=== PATIENT | female | born 1945 | race Caucasian/White ===

== ENCOUNTER 2022-06-02 11:17 | Outpatient (CLI) | payer BC, SELFPAY | END 2022-06-02 11:18 | disposition home or self-care (01) | LOC: NFLDREF 11:20 | PROVIDERS: PCP Internal Medicine; Visit Provider Obstetrics & Gynecology | DX: R35.0 Frequency of micturition (principal) | CPT/HCPCS: 87086 ==

== ENCOUNTER 2022-11-16 07:30 | Outpatient (CLI) | payer BC, SELFPAY ==
[2022-11-16 10:00] LABS: Chloride* 106 mmol/L (96-114); Potassium* 4.3 mmol/L (3.6-5.1); Sodium* 140 mmol/L (135-149)
[2022-11-16 10:03] LABS: Creatinine* 0.9 mg/dL (0.5-1.5); Estimated Glomerular Filt Rate 66 ml/min
[2022-11-16 10:04] LABS: Blood Urea Nitrogen* 20 mg/dL (7-30); Calcium* 9.3 mg/dL (8.4-10.6); Carbon Dioxide* 32 mmol/L (20-32); Glucose* 101 mg/dL (60-115)
== END 2022-11-16 07:31 | disposition home or self-care (01) ==
PROVIDERS: PCP Internal Medicine; Visit Provider Internal Medicine
DX: Z00.00 Encounter for general adult medical examination without abnormal findings (principal); E03.9 Hypothyroidism, unspecified; I10 Essential (primary) hypertension
CPT/HCPCS: 80048; 84443

== ENCOUNTER 2023-02-01 15:05 | Outpatient (CLI) | payer BC, SELFPAY ==
--- NOTE | 2023-02-01 15:20 | CRLHL7_ITS ---
For Patients: As a result of the Century Cures Act, medical imaging exams and procedure reports are released immediately into your electronic medical record. You may view this report before your referring provider. If you have questions, please contact your health care provider. BILATERAL SCREENING MAMMOGRAM WITH COMPUTER-AIDED DETECTION AND TOMOSYNTHESIS TECHNIQUE: CC and MLO views were obtained. These mammographic images have been obtained using full-field digital technique. These mammographic images were interpreted with the benefit of computer-aided detection. Breast Tomosynthesis was used in this interpretation. COMPARISON FILM: 06/24/21, 06/16/20, 06/11/19 FINDINGS: There are scattered areas of fibroglandular density. IMPRESSION: There is no radiographic evidence for malignancy. ASSESSMENT: BI-RADS Category 1: Negative RECOMMENDATION: Routine screening mammogram in 1 year. A lay language report of this examination will be provided to the patient. Yann Mayfield M.D. Diagnostic/Nuclear Medicine Radiologist [email or web address] Transcribed: 8:53 a.m. PT/Dictated by: Yann Mayfield MD @ 02/08/2023 8:54:00 AM (Electronically Signed)
== END 2023-02-01 15:06 | disposition home or self-care (01) ==
LOC: MAMMO 15:06
PROVIDERS: PCP Internal Medicine; Visit Provider Internal Medicine
DX: Z12.31 Encounter for screening mammogram for malignant neoplasm of breast (principal)
CPT/HCPCS: 77063; 77067

== ENCOUNTER 2023-12-05 09:10 | Outpatient (CLI) | payer BC, SELFPAY | END 2023-12-05 09:11 | disposition home or self-care (01) | LOC: NFLDREF 15:27 | PROVIDERS: PCP Internal Medicine; Referring Provider Internal Medicine; Visit Provider Internal Medicine | DX: E03.9 Hypothyroidism, unspecified (principal); I10 Essential (primary) hypertension | CPT/HCPCS: 80048; 84443 ==

== ENCOUNTER 2024-04-18 09:08 | Outpatient (CLI) | payer BC, SELFPAY ==
--- NOTE | 2024-04-18 09:15 | CRLHL7_ITS ---
For Patients: As a result of the Century Cures Act, medical imaging exams and procedure reports are released immediately into your electronic medical record. You may view this report before your referring provider. If you have questions, please contact your health care provider. BILATERAL SCREENING MAMMOGRAM WITH COMPUTER-AIDED DETECTION AND TOMOSYNTHESIS TECHNIQUE: CC and MLO views were obtained. These mammographic images have been obtained using full-field digital technique. These mammographic images were interpreted with the benefit of computer-aided detection. Breast Tomosynthesis was used in this interpretation. COMPARISON FILM: 02/01/23, 06/24/21, 06/16/20. FINDINGS: There are scattered areas of fibroglandular density. IMPRESSION: There is no radiographic evidence for malignancy. ASSESSMENT: BI-RADS Category 1: Negative RECOMMENDATION: Routine screening mammogram in 1 year. A lay language report of this examination will be provided to the patient. Jake Hernandez M.D. Diagnostic Radiologist [email or web address] SP/Dictated by: Jake Hernandez MD @ 04/18/2024 12:07:00 PM (Electronically Signed)
== END 2024-04-18 09:09 | disposition home or self-care (01) ==
LOC: MAMMO 09:09
PROVIDERS: PCP Internal Medicine; Visit Provider Internal Medicine
DX: Z12.31 Encounter for screening mammogram for malignant neoplasm of breast (principal)
CPT/HCPCS: 77063; 77067

== ENCOUNTER 2024-12-10 08:09 | Outpatient (CLI) | payer BC, SELFPAY | END 2024-12-10 08:10 | disposition home or self-care (01) | PROVIDERS: PCP Internal Medicine; Visit Provider Internal Medicine | DX: E03.9 Hypothyroidism, unspecified (principal); I10 Essential (primary) hypertension; M85.80 Other specified disorders of bone density and structure, unspecified site | CPT/HCPCS: 80048; 82306; 84443 ==

== ENCOUNTER 2025-03-21 07:20 | Outpatient (CLI) | payer BC, SELFPAY | END 2025-03-21 07:21 | disposition home or self-care (01) | LOC: AMB 03-22 09:12 | PROVIDERS: PCP Internal Medicine; Visit Provider Family Medicine | DX: R53.1 Weakness (principal) | CPT/HCPCS: A0425; A0427 ==

== ENCOUNTER 2025-03-21 07:51 | Inpatient (IN) | payer BC, MEDICARE, SELFPAY ==
[2025-03-21] VITALS (22 sets, daily range): BP systolic 158–213; BP diastolic 74–114; PULSE 60–81; RESP 11–22; TEMP 36.4–36.7; O2SAT 92–100; BMI 25.1
--- NOTE | 2025-03-21 07:51 | CRLHL7_ITS ---
For Patients: As a result of the Century Cures Act, medical imaging exams and procedure reports are released immediately into your electronic medical record. You may view this report before your referring provider. If you have questions, please contact your health care provider. INDICATION: Right-sided weakness, unable to control arm and leg. TECHNIQUE: CT head without contrast. COMPARISON: None. FINDINGS: CSF spaces: Within normal limits for age. Brain parenchyma: The pandey-white differentiation is normal. No sign of mass, hemorrhage, or midline shift. Small low-density within the deep white matter. Skull base and calvarium: The visualized paranasal sinuses and mastoid air cells demonstrate no acute or significant findings. The visualized orbits are grossly unremarkable. No skull fractures. IMPRESSION: 1. No intracranial bleed or mass effect. 2. Mild nonspecific white matter disease, likely microangiopathy. Results called to Dr. Canales at 0814 on 03/21/2025 Please note that all CT scans at this facility use dose modulation, iterative reconstruction, and/or weight-based dosing when appropriate to reduce radiation dose to as low as reasonably achievable. Dictated by Harjinder Lebron MD @ 03/21/2025 8:16:07 AM (Electronically Signed)
--- NOTE | 2025-03-21 08:04 | ED.GENADULT ---
HPI - General Adult General Time Seen by Provider: 08:04 Date Seen: 03/21/25 Chief complaint: Weakness Stated complaint: Weakness Time Seen by Provider: 03/21/25 08:03 Source: patient, EMS and RN notes reviewed Mode of arrival: EMS Limitations: no limitations History of Present Illness HPI narrative: This 79-year-old female is brought in by EMS from home with complaint of right arm and leg weakness/clumsiness. She had a cramp in her right leg about 3:00 a.m., this is not abnormal for her. She attempted to stand up and felt like her right leg was weak or clumsy. She noted her arm felt the same. She laid back down and did feel a bit better, was able to get herself to the bathroom eventually. Symptoms have continued to be present, were worsening again and prompted her to call the ambulance. 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 She notes when she is up she feels unsteady in her gait. She notes no visual changes, no headache, no head trauma. She has not noted any chest pain or any sense of irregular heartbeat or palpitations. She does note that she will occasionally feel like her heart will beat irregular but she has not noticed anything with in the context of her current symptoms. She was brought in by EMS, the overnight doctor gave an okay for verbal ordering of head CT based on patient's symptoms. Patient went directly to head CT, I am the 1st physician to see her off upon arriving back from head CT. She has a contrast allergy with hives. She is known to have hypertension and history of left bundle branch block on her EKG. Patient went to bed around 10:00 p.m. or 10:30 p.m. last night, last known well. Related Data Home Medications ?Medication ?Instructions ?Recorded ?Confirmed alprazolam 0.5 mg tablet 0.25 - 0.5 mg PO DAILY PRN anxiety 03/21/25 03/21/25 amitriptyline 25 mg tablet 25 mg PO HS 03/21/25 03/21/25 ibuprofen-diphenhydramine citrate 1 cap PO HS PRN 03/21/25 03/21/25 200 mg-38 mg tablet (Advil PM) levothyroxine 125 mcg tablet 125 mcg PO DAILY 03/21/25 03/21/25 lisinopril 10 mg tablet 10 mg PO DAILY 03/21/25 03/21/25 oxybutynin chloride 15 mg 15 mg PO DAILY 03/21/25 03/21/25 tablet,extended release 24 hr Allergies Allergy/AdvReac Type Severity Reaction Status Date / Time Iodinated Contrast Media Allergy Severe Difficulty Verified 03/21/25 10:40 Breathing Influenza Virus Vaccines Allergy Unknown Hives Verified 03/21/25 10:40 Review of Systems Status of ROS: Reports: 6 or more systems reviewed and unremarkable except as noted in History and below [facility] Medical History History of thyroid cancer (1994) ?Z85.850 - Personal history of malignant neoplasm of thyroid (ICD-10) Surgical History History of cataract surgery ?Z98.49 - Cataract extraction status, unspecified eye (ICD-10) History of basal cell cancer ?Z85.828 - Personal history of other malignant neoplasm of skin (ICD-10) History of tonsillectomy ?Z90.89 - Acquired absence of other organs (ICD-10) History of thyroidectomy (1994) ?E89.0 - Postprocedural hypothyroidism (ICD-10) History of ovarian cystectomy (1995) ?Z98.890 - Other specified postprocedural states (ICD-10) ?Z87.42 - Personal history of other diseases of the female genital tract (ICD-10) Family History Maternal Grandfather Kidney disease Unknown Deep vein thrombosis Social History Narrative: Cis-gender, heterosexual woman. 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 Lifetime non-smoker What is your current living situation?: I presently have a place to live Problems where you live: no known problems Problems where you live details: none In the past 12 months, utilities in danger of being shut off: no In past 12 months, lack of transportation kept you from medical appts, meetings, work, or getting things needed for daily living: no In the past 12 mos, have been you worried that your food would run out before you had money to buy more?: never true In the past 12 mos, the food you bought just didn't last and you didn't have money to buy more?: never true Highest level of school completed/degree received: Master's degree Smoking Status: Former smoker How often do you have a drink containing alcohol: 4 or more times a week How many standard drinks containing alcohol do you have on a typical day: 1 or 2 How often do you have six or more drinks on one occasion: Never AUDIT-C Alcohol total score: 4 Non-prescribed substance use: denies use How often does anyone, including family, friends and others, physically hurt you: never How often does anyone, including family, friends and others, insult or talk down to you: never How often does anyone, including family, friends and others, threaten you with harm: never How often does anyone, including family, friends and others, scream or curse at you: never Exam Const: Vital Signs, click to edit/add: Vital Signs - 24 hr 03/21/25 07:57 03/21/25 08:09 03/21/25 08:22 Temperature 97.5 F L Pulse Rate 60 Pulse Rate [Pulse Oximeter] 68 Respiratory Rate 16 13 Blood Pressure 199/94 H Blood Pressure [Le ft Upper Arm] 194/93 H Pulse Oximetry 96 97 [facility] 03/21/25 08:31 03/21/25 08:47 03/21/25 08:48 Temperature Pulse Rate 81 68 65 Pulse Rate [Pulse Oximeter] Respiratory Rate 16 16 15 Blood Pressure 213/114 H 205/98 H Blood Pressure [Le ft Upper Arm] Pulse Oximetry 100 98 98 [facility] 03/21/25 09:00 03/21/25 09:02 03/21/25 09:23 Temperature Pulse Rate 68 69 63 Pulse Rate [Pulse Oximeter] Respiratory Rate 19 18 16 Blood Pressure 192/104 H 198/91 H Blood Pressure [Le ft Upper Arm] Pulse Oximetry 96 97 95 Oxygen Delivery Pr thod 03/21/25 09:38 03/21/25 09:51 03/21/25 09:52 Temperature Pulse Rate 67 70 67 Pulse Rate [Pulse Oximeter] Respiratory Rate 22 20 16 Blood Pressure 211/92 H Blood Pressure [Le ft Upper Arm] Pulse Oximetry 96 96 95 Oxygen Delivery Me thod 03/21/25 10:02 03/21/25 11:08 03/21/25 11:32 Temperature Pulse Rate 65 62 67 Pulse Rate [Pulse Oximeter] Respiratory Rate 11 L 16 16 Blood Pressure 208/100 H 200/93 H 174/89 H Blood Pressure [Le ft Upper Arm] Pulse Oximetry 95 96 98 Oxygen Delivery Me thod 03/21/25 11:45 03/21/25 12:00 03/21/25 12:02 Temperature Pulse Rate 66 68 67 Pulse Rate [Pulse Oximeter] Respiratory Rate 12 13 14 Blood Pressure 184/92 H Blood Pressure [Le ft Upper Arm] Pulse Oximetry 95 95 92 Oxygen Delivery Me thod This 79-year-old female is alert, interactive, no apparent distress. Pupils equal round reactive to light, visual carter grossly normal on confrontation. Sclera clear, conjugate gaze. Symmetrical facial function, speech normal. Neck supple, no adenopathy, no palpable thyroid tissue (surgically absent), no jugular venous distention. CV regular rate and rhythm, soft systolic murmur, normal S1-S2. Abdomen soft, nontender, nondistended, no organomegaly, rebound or guarding. 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 Able to lift each leg out of the bed. What is noted on her right side is she is slower and has to be very deliberate on her finger to finger movements. She does have right arm drift. She has dysmetria with both her arm and leg with movement. I do not note any resting tremor. Seems to have normal light touch sensation at this point. Documenting provider has reviewed patient's vital signs: yes Course Course ED Course: Head CT imaging done, should have results shortly. Will talk to Stroke Neurology, they have reportedly been paged. She will be on cardiac monitoring, pulse oximetry. Will monitor her blood pressure. Do suspect that this patient has had a cerebrovascular event. Will need to premedicate before doing CT angiography of her head neck. Will order 200 mg IV hydrocortisone and 50 mg IV Benadryl, CT can be done 1 hour after that following our radiology protocol for premedication. She certainly does not fit time criteria to be in the window for thrombolytics. Reevaluation(s) Time of Reevaluation #1: 11:59 Reevaluation #1: Reviewed plan with patient. Answered some of her questions. She will be moved to the hospital when bed is ready. Consultations Consultation #1: Did speak with Dr. Canales whom is on-call for Stroke Neurology. We did review patient's hypertensive blood pressures. Goal will be to have her under 220/110. She would not be a candidate for TNK nor thrombectomy candidate. We did discuss the allergy to IV contrast with hives. We do need to premedicate with hydrocortisone and Benadryl. She states that the delay in CT angiography really is unlikely to alter care significantly given that patient is not a candidate for TNK or thrombectomy. We will let her know when CT angiography has been completed. Patient is suspect for small-vessel disease CVA. 10:30 a.m.: Did follow-up with Dr. Canales. Patient will be getting an MR brain noncontrast which she agrees with. Patient has not been taking any aspirin. Thus, she will get an 81 mg aspirin now per Dr. Canales. Will follow-up after MRI. 11:49 a.m.: Did speak with Dr. Canales again. Review the MRI finding an acute ischemic stroke. She would do dual antiplatelet agent with Plavix 75 mg for 21 days. She does not recommend Plavix loading, just give 75 mg now. She will see the patient in the morning. I will talk to the hospitalist. Time: 08:10 Consultation #2: Have spoken with our hospitalist Dr. Peraza, she accepts. Time: 11:53 Vital Signs Vital signs: Initial Vital Signs Temperature 97.5 F L 03/21/25 07:57 Temperature Source Temporal Artery Scan 03/21/25 07:57 Pulse Rate 68 03/21/25 07:57 Respiratory Rate 16 03/21/25 07:57 Blood Pressure 194/93 H 03/21/25 07:57 Blood Pressure Mean 126 H 03/21/25 07:57 Blood Pressure Position Supine 03/21/25 07:57 Pulse Oximetry 96 03/21/25 07:57 Oxygen Delivery Method Room Air 03/21/25 07:57 Vital Signs Temperature 97.5 F L 03/21/25 07:57 Pulse Rate 68 03/21/25 07:57 Respiratory Rate 16 03/21/25 07:57 Blood Pressure 194/93 H 03/21/25 07:57 Pulse Oximetry 96 03/21/25 07:57 Oxygen Delivery Method Room Air 03/21/25 07:57 Temperature 98.0 F 03/21/25 15:02 Pulse Rate 68 03/21/25 15:02 Respiratory Rate 18 03/21/25 15:02 Blood Pressure 169/76 H 03/21/25 15:02 Pulse Oximetry 93 03/21/25 15:02 Oxygen Delivery Method Room Air 03/21/25 15:02 Medications Administered Medications: Discontinued Medications Generic Name Dose Route Start Last Admin Trade Name Freq PRN Reason Stop Dose Admin Aspirin 81 mg 03/21/25 10:30 03/21/25 11:07 Aspirin 81 Mg Tab.Chew PO 03/21/25 10:31 81 mg ONCE ONE Administration Clopidogrel Bisulfate 75 mg 03/21/25 11:50 03/21/25 11:58 Clopidogrel 75 Mg Tablet PO 03/21/25 11:51 75 mg ONCE ONE Administration Diphenhydramine HCl 50 mg 03/21/25 08:15 03/21/25 08:21 Diphenhydramine 50 Mg/Ml Inj IVP 03/21/25 08:16 50 mg ONCE ONE Administration Hydrocortisone Sodium Succinate 200 mg 03/21/25 08:14 03/21/25 08:20 Hydrocortisone Sod Succinate 50 Mg/Ml Inj IVP 03/21/25 08:15 200 mg ONCE ONE Administration Lorazepam 1 mg 03/21/25 10:12 03/21/25 10:21 Lorazepam 1 Mg Tablet PO 03/21/25 10:13 1 mg ONCE ONE Administration Medical Decision Making Lab Data Lab results reviewed: Yes I reviewed the patient's lab results Labs: Lab Results 03/21/25 Range/Units 08:15 WBC 7.15 (4.50-11.00) K/uL RBC 5.04 (4.00-5.20) m/uL Hgb 15.1 (12.0-16.0) gm/dL Hct 45.8 (33.0-51.0) % MCV 91 (80-100) fL MCH 30 (26-34) pg MCHC 33 (32-36) gm/dL RDW Coeff of Naina 13.6 (11.5-15.5) % Plt Count 266 (140-440) K/uL Neut % (Auto) 71.5 (42.0-72.0) % Lymph % (Auto) 22.5 (20-44) % [place] % (Auto) 3.8 (0.0-11.0) % Eos % (Auto) 1.3 (0.0-7.0) % Baso % (Auto) 0.6 (0.0-3.0) % Neut # (Auto) 5.12 (1.7-7.0) K/uL Lymph # (Auto) 1.61 (0.90-2.90) K/uL [place] # (Auto) 0.30 (0.00-0.90) K/UL Eos # (Auto) 0.09 (0.00-0.50) K/uL Baso # (Auto) 0.04 (0.00-0.30) K/uL Abs Immat Gran (auto) 0.02 (0.00-0.30) K/uL Imm/Tot Granulo (auto) 0.3 % INR 0.94 (0.91-1.10) APTT 26 (23-33) Seconds Sodium 141 (135-149) mmol/L Potassium 4.2 (3.6-5.1) mmol/L Chloride 108 (96-114) mmol/L Carbon Dioxide 25 (20-32) mmol/L Anion Gap 8 (7-15) mEq/L BUN 22 (7-30) mg/dL Creatinine 1.1 (0.5-1.5) mg/dL Estimated Creat Clear 43.34 Estimated GFR 51 ml/min Glucose 115 (60-115) mg/dL Calcium 9.7 (8.4-10.6) mg/dL Magnesium 2.3 (1.5-2.6) mg/dL Total Bilirubin 0.8 (0.1-1.5) mg/dL AST 33 (12-35) U/L ALT 20 (4-35) U/L Alkaline Phosphatase 58 (40-150) U/L Total Protein 7.8 (6.0-8.3) g/dL Albumin 4.7 (3.3-5.0) g/dL Imaging Data CT scan - head: Attestation: I have reviewed the pertinent imaging results. Radiologist's impression: Patient: DELANEY MORALES Facility:?[facility] Patient ID:?[id number] Site Patient ID:?[id number]. Site :?1945 Study:?CT-Head STROKE CODE-03/21/2025 8:07:11 AM Ordering Physician:Gil Solis Final Report: INDICATION: Right-sided weakness, unable to control arm and leg. TECHNIQUE: CT head without contrast. COMPARISON: None. FINDINGS: CSF spaces: Within normal limits for age. Brain parenchyma: The pandey-white differentiation is normal. No sign of mass, hemorrhage, or midline shift. Small low-density within the deep white matter. Skull base and calvarium: The visualized paranasal sinuses and mastoid air cells demonstrate no acute or significant findings. The visualized orbits are grossly unremarkable. No skull fractures. IMPRESSION: 1. No intracranial bleed or mass effect. 2. Mild nonspecific white matter disease, likely microangiopathy. Results called to Dr. Canales at 0814 on 03/21/2025 Please note that all CT scans at this facility use dose modulation, iterative reconstruction, and/or weight-based dosing when appropriate to reduce radiation dose to as low as reasonably achievable. Dictated by Harjinder Lebron MD @ 03/21/2025 8:16:07 AM (Electronic Signature) CT- Other: Attestation: I have reviewed the pertinent imaging results. Radiologist's impression: Patient: DELANEY MORALES Facility:?[facility] Patient ID:?[id number] Site Patient ID:?[id number]. Site :?1945 Study:?CT-Head Angio STROKE CODE WITH 95 CC ISOVUE 370-03/21/2025 9:44:23 AM Ordering Physician:?Olga Solis Preliminary Report: . CTA head: No large vessel occlusion. . CTA neck: No high-grade carotid artery stenosis, occlusion or dissection. Bilateral vertebral arteries are patent. . Discussed with Dr. Canales by telephone at 10:03 a.m. on 03/21/2025. Read by:?Bruno Agarwal MD @03/21/2025 10:05:09 AM MRI - head: Attestation: I have reviewed the pertinent imaging results. Radiologist's impression: Patient: DELANEY MORALES Facility:?[facility] Patient ID:?[id number] Site Patient ID:?[id number]. Site :?1945 Study:?MRI-Head W/O-03/21/2025 11:20:45 AM Ordering Physician:Gil Solis Final Report: INDICATION: Right-sided weakness. Incoordination. TECHNIQUE: Brain MRI without contrast. COMPARISON: Head CT from 03/21/2025. FINDINGS: Focus of diffusion restriction/minimal FLAIR hyperintensity within the posterior putamen/periventricular ferrell radiata which measures 10 x 17 millimeters in axial plane. No evidence of acute or chronic intracranial blood products. Patchy FLAIR hyperintensities within the supratentorial white matter and brainstem, typical for chronic microvascular ischemic change. No mass effect or herniation. No hydrocephalus or extra-axial collections. The pituitary gland, parasellar structures and optic chiasm are normal. Posterior fossa is normal. All the major intracranial vascular structures demonstrate normal flow-related signal. The orbital contents are normal. No calvarial or skull base marrow replacing process. No obstructive sinus disease. No extracranial soft tissue findings. IMPRESSION: 1. 17 millimeter acute infarction within the left posterior putamen/periventricular coronary radiata, likely lacunar in etiology. 2. Mild chronic microvascular ischemic changes. Dictated by Nolan Maldonado MD @ 03/21/2025 11:42:16 AM (Electronic Signature) ECG Data Attestation: I personally reviewed and interpreted this ECG as follows: (Normal sinus rhythm, 61 beats per minute, left bundle branch block.) Prior ECG tracings: available for review Discharge Plan Discharge Clinical Impression: Acute lacunar infarction Patient Disposition: Admitted As Observation
--- NOTE | 2025-03-21 08:09 | CRLHL7_ITS ---
For Patients: As a result of the Century Cures Act, medical imaging exams and procedure reports are released immediately into your electronic medical record. You may view this report before your referring provider. If you have questions, please contact your health care provider. CLINICAL HISTORY: Acute neurological deficit. TECHNIQUE: Standard helical CT image acquisition through the head following the administration of intravenous contrast was performed. 3D and MIP reconstructions were performed at a separate workstation and permanently archived. COMPARISON: None available. FINDINGS: No intracranial proximal large vessel occlusion or flow-limiting luminal stenosis. No evidence of cerebral aneurysm. No findings to suggest an arterial-venous shunting lesion. The major dural venous sinuses and deep venous system are patent. IMPRESSION: No intracranial proximal large vessel occlusion, flow-limiting luminal stenosis, or cerebral aneurysm. Please note that all CT scans at this facility use dose modulation, iterative reconstruction, and/or weight-based dosing when appropriate to reduce radiation dose to as low as reasonably achievable. Dictated by Herb Albrecht MD @ 03/21/2025 7:07:01 PM (Electronically Signed)
--- NOTE | 2025-03-21 08:09 | CRLHL7_ITS ---
For Patients: As a result of the Century Cures Act, medical imaging exams and procedure reports are released immediately into your electronic medical record. You may view this report before your referring provider. If you have questions, please contact your health care provider. CLINICAL HISTORY: Acute neurological deficit. TECHNIQUE: Standard helical CT image acquisition through the neck was performed after intravenous contrast bolus enhancement. 3D and MIP reconstructions were performed at a separate workstation and permanently archived. COMPARISON: None available. FINDINGS: The origins of the great vessels from the aortic arch are patent. The common carotid arteries are patent. No significant luminal stenoses of the proximal ICAs by NASCET criteria. The more distal cervical segments of the ICAs are patent. The origins and cervical segments of the vertebral arteries are patent. IMPRESSION: Patent cervical arterial vasculature without hemodynamically significant luminal stenosis. Please note that all CT scans at this facility use dose modulation, iterative reconstruction, and/or weight-based dosing when appropriate to reduce radiation dose to as low as reasonably achievable. Dictated by Herb Albrecht MD @ 03/21/2025 7:04:20 PM (Electronically Signed)
[2025-03-21] MEDS: HYDROCORTISONE SOD SUCCINATE 50 MG/ML inj 200 MG IVP (08:20)
[2025-03-21] MEDS: diphenhydrAMINE 50 MG/ML inj IVP (08:21)
[2025-03-21 08:26] LABS: Basophils Absolute Auto 0.04 K/uL (0.00-0.30); Basophils Percent Auto 0.6 % (0.0-3.0); Eosinophils Absolute Auto 0.09 K/uL (0.00-0.50); Eosinophils Percent Auto 1.3 % (0.0-7.0); Hematocrit 45.8 % (33.0-51.0); Hemoglobin* 15.1 gm/dL (12.0-16.0); Immature Granulocytes Abs Auto 0.02 K/uL (0.00-0.30); Immature Granulocytes Pct Auto 0.3 %; Lymphocytes Absolute Auto 1.61 K/uL (0.90-2.90); Lymphocytes Percent Auto 22.5 % (20-44); Mean Corpuscular HGB Conc 33 gm/dL (32-36); Mean Corpuscular Hemoglobin 30 pg (26-34); Mean Corpuscular Volume 91 fL (80-100); Monocytes Percent Auto 3.8 % (0.0-11.0); Neutrophils Absolute Auto 5.12 K/uL (1.7-7.0); Neutrophils Percent Auto 71.5 % (42.0-72.0); Platelet Count* 266 K/uL (140-440); RDW Coefficient of Variation % 13.6 % (11.5-15.5); Red Blood Count 5.04 m/uL (4.00-5.20); White Blood Count* 7.15 K/uL (4.50-11.00)
[2025-03-21 08:29] LABS: Slide Review Reflex No
[2025-03-21 08:41] LABS: Chloride* 108 mmol/L (96-114)
[2025-03-21 08:42] LABS: Albumin* 4.7 g/dL (3.3-5.0); Potassium* 4.2 mmol/L (3.6-5.1); Sodium* 141 mmol/L (135-149)
[2025-03-21 08:45] LABS: Alanine Aminotransferase* 20 U/L (4-35); Alkaline Phosphatase* 58 U/L (40-150); Anion Gap 8 mEq/L (7-15); Aspartate Amino Transferase* 33 U/L (12-35); Bilirubin Total* 0.8 mg/dL (0.1-1.5); Blood Urea Nitrogen* 22 mg/dL (7-30); Calcium* 9.7 mg/dL (8.4-10.6); Carbon Dioxide* 25 mmol/L (20-32); Creatinine* 1.1 mg/dL (0.5-1.5); Est. Creatinine Clearance* 43.34; Estimated Glomerular Filt Rate 51 ml/min; Glucose* 115 mg/dL (60-115); Magnesium* 2.3 mg/dL (1.5-2.6); Total Protein* 7.8 g/dL (6.0-8.3)
[2025-03-21 08:46] LABS: INR 0.94 (0.91-1.10); Partial Thromboplastin Time* 26 Seconds (23-33); Prothrombin Time 13.3 Seconds
--- NOTE | 2025-03-21 10:12 | CRLHL7_ITS ---
For Patients: As a result of the Century Cures Act, medical imaging exams and procedure reports are released immediately into your electronic medical record. You may view this report before your referring provider. If you have questions, please contact your health care provider. INDICATION: Right-sided weakness. Incoordination. TECHNIQUE: Brain MRI without contrast. COMPARISON: Head CT from 03/21/2025. FINDINGS: Focus of diffusion restriction/minimal FLAIR hyperintensity within the posterior putamen/periventricular ferrell radiata which measures 10 x 17 millimeters in axial plane. No evidence of acute or chronic intracranial blood products. Patchy FLAIR hyperintensities within the supratentorial white matter and brainstem, typical for chronic microvascular ischemic change. No mass effect or herniation. No hydrocephalus or extra-axial collections. The pituitary gland, parasellar structures and optic chiasm are normal. Posterior fossa is normal. All the major intracranial vascular structures demonstrate normal flow-related signal. The orbital contents are normal. No calvarial or skull base marrow replacing process. No obstructive sinus disease. No extracranial soft tissue findings. IMPRESSION: 1. 17 millimeter acute infarction within the left posterior putamen/periventricular coronary radiata, likely lacunar in etiology. 2. Mild chronic microvascular ischemic changes. Dictated by Nolan Maldonado MD @ 03/21/2025 11:42:16 AM (Electronically Signed)
[2025-03-21] MEDS: LORazepam 1 MG TABLET PO (10:21)
[2025-03-21] MEDS: ASPIRIN 81 MG TAB.CHEW PO (11:07)
[2025-03-21] MEDS: CLOPIDOGREL 75 MG TABLET PO (11:58)
--- NOTE | 2025-03-21 13:57 | PM.IMHP1 ---
Assessment and Plan Assessment and plan (1) Acute lacunar infarction: Problem comment: -Brain MRI: 17 millimeter acute infarction within the left posterior putamen/periventricular coronary radiata, likely lacunar in etiology. -Pt is outside the window for thrombolytics and is not a candidate for [facility] thrombectomy as she doesnt have an LVO. -Frequent neuro exams -Permissive HTN, treat if only SBP > 220, and or DBP > 110. -Control Bl. sugar, keep < 180 -If neurological status detoriorates, order a stat CTH w/out IV cont. -Neurologist rec DAPT Tx for 21 days. -PT/OT/ST -NPO until ST eval or pt passes bedside swallow test. -No chem DVT PPx until neuro recommends it. SCDs for now. -ECHO ordered Status: Acute (2) Interstitial cystitis: Problem comment: gynecology started amitriptyline 06/07 Status: Acute (3) Urge incontinence: Problem comment: on Oxybutynin, Dr. Ibrahim recommended urology consultation (to discuss bladder botox amongst other things), 05/07 Status: Acute (4) Hypothyroidism: Problem comment: on levothyroxine Status: Chronic (5) Anxiety: Problem comment: on alprazolam as needed Status: Chronic (6) Essential hypertension: Problem comment: Hold meds Status: Acute (7) Left bundle branch block: Problem comment: Noted in outside records to 2005 Status: Acute (8) Glaucoma: Status: Chronic Total Time Spent Total Time Spent: Time spent: Today I spent 75 minutes seeing the patient, discussing the patient with ER staff, reviewing Expanse and EPIC notes/diagnostics, discussing the care plan with our care time that includes social work, PT/OT, pharmacy, RT, prison and documenting my impressions and plan in the medical record. Hospitalist- H&P: HPI History of Present Illness Date Seen: 03/21/25 Chief complaint: Weakness Narrative: Angela Valencia is a 79 year old female w/ PMHx of HTN, hypothyroidism, glaucoma, and interstitial cystitis presented to ED w/ Rt sided weakness. Pt LSN was ~ 10 PM yesterday. At the ED, CTH, CTA neck and brain MRI were done. Her MRI confirmed the presence of an acute Lt Lacunar infarct in the Putamen. Contacted Tele stroke team, who assessed her and stated that she is outside the window for thrombolytics and is not a candidate for [facility] thrombectomy as she doesnt have an LVO. Neurologist rec a DAPT Tx for 21 days, but didnt load her w/ ASA or plavix, just started w/ ASA 81 mg dose and Plavix 75 mg. Pt denies any Hx of strokes, TIAs or heart diseases except for HTN and Hx of ectopic beats. Not on any blood thinners. Review of Systems Status of ROS: Reports: 6 or more systems reviewed and unremarkable except as noted in History and below Medical Decision Making Medical Decision Making Has patient completed a Health Care Directive: No PFSH PFSH Medical History History of thyroid cancer (1994) ?Z85.850 - Personal history of malignant neoplasm of thyroid (ICD-10) Surgical History History of cataract surgery ?Z98.49 - Cataract extraction status, unspecified eye (ICD-10) History of basal cell cancer ?Z85.828 - Personal history of other malignant neoplasm of skin (ICD-10) History of tonsillectomy ?Z90.89 - Acquired absence of other organs (ICD-10) History of thyroidectomy (1994) ?E89.0 - Postprocedural hypothyroidism (ICD-10) History of ovarian cystectomy (1995) ?Z98.890 - Other specified postprocedural states (ICD-10) ?Z87.42 - Personal history of other diseases of the female genital tract (ICD-10) Family History Maternal Grandfather Kidney disease Unknown Deep vein thrombosis Social History Narrative: Cis-gender, heterosexual woman. 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 Lifetime non-smoker What is your current living situation?: I presently have a place to live Problems where you live: no known problems Problems where you live details: none In the past 12 months, utilities in danger of being shut off: no In past 12 months, lack of transportation kept you from medical appts, meetings, work, or getting things needed for daily living: no In the past 12 mos, have been you worried that your food would run out before you had money to buy more?: never true In the past 12 mos, the food you bought just didn't last and you didn't have money to buy more?: never true Highest level of school completed/degree received: Master's degree Smoking Status: Former smoker How often do you have a drink containing alcohol: 4 or more times a week How many standard drinks containing alcohol do you have on a typical day: 1 or 2 How often do you have six or more drinks on one occasion: Never AUDIT-C Alcohol total score: 4 Non-prescribed substance use: denies use How often does anyone, including family, friends and others, physically hurt you: never How often does anyone, including family, friends and others, insult or talk down to you: never How often does anyone, including family, friends and others, threaten you with harm: never How often does anyone, including family, friends and others, scream or curse at you: never Meds Home Medications and Allergies Home Medications ?Medication ?Instructions ?Recorded ?Confirmed ?Type alprazolam 0.5 mg tablet 0.25 - 0.5 mg PO DAILY PRN anxiety 03/21/25 03/21/25 History amitriptyline 25 mg tablet 25 mg PO HS 03/21/25 03/21/25 History ibuprofen-diphenhydramine citrate 1 cap PO HS PRN 03/21/25 03/21/25 History 200 mg-38 mg tablet (Advil PM) levothyroxine 125 mcg tablet 125 mcg PO DAILY 03/21/25 03/21/25 History lisinopril 10 mg tablet 10 mg PO DAILY 03/21/25 03/21/25 History oxybutynin chloride 15 mg 15 mg PO DAILY 03/21/25 03/21/25 History tablet,extended release 24 hr Allergies Allergy/AdvReac Type Severity Reaction Status Date / Time Iodinated Contrast Media Allergy Severe Difficulty Verified 03/21/25 10:40 Breathing Influenza Virus Vaccines Allergy Unknown Hives Verified 03/21/25 10:40 Exam Narrative: Exam Narrative: Physical exam GENERAL: Comfortable, no acute distress. HEAD AND NECK: Atraumatic, normocephalic CARDIOVASCULAR: RRR. Normal S1, S2. No murmurs. RESPIRATORY: Clear to auscultation B/L. Good air entry B/L. No wheezes or rhonchi. NEUROLOGY: Alert, awake, oriented X 3. Normal speech. Mild drift in the right upper extremity. PSYCH: Normal mood, normal affect. Const: Vital Signs, click to edit/add: Vital Signs - 24 hr 03/21/25 07:57 03/21/25 08:09 03/21/25 08:22 Temperature 97.5 F L Pulse Rate 60 Pulse Rate [Pulse Oximeter] 68 Respiratory Rate 16 13 Blood Pressure 199/94 H Blood Pressure [Le ft Upper Arm] 194/93 H Pulse Oximetry 96 97 98 Oxygen Delivery Me od Room Air 03/21/25 08:31 03/21/25 08:47 03/21/25 08:48 Temperature Pulse Rate 81 68 65 Pulse Rate [Pulse Oximeter] Respiratory Rate 16 16 15 Blood Pressure 213/114 H 205/98 H Blood Pressure [Le ft Upper Arm] Pulse Oximetry 100 98 98 Oxygen Delivery Ar thod 03/21/25 09:00 03/21/25 09:02 03/21/25 09:23 Temperature Pulse Rate 68 69 63 Pulse Rate [Pulse Oximeter] Respiratory Rate 19 18 16 Blood Pressure 192/104 H 198/91 H Blood Pressure [Le ft Upper Arm] Pulse Oximetry 96 97 95 Oxygen Delivery Me thod 03/21/25 09:38 03/21/25 09:51 03/21/25 09:52 Temperature Pulse Rate 67 70 67 Pulse Rate [Pulse Oximeter] Respiratory Rate 22 20 16 Blood Pressure 211/92 H Blood Pressure [Le ft Upper Arm] Pulse Oximetry 96 96 95 Oxygen Delivery Me thod 03/21/25 10:02 03/21/25 11:08 03/21/25 11:32 Temperature Pulse Rate 65 62 67 Pulse Rate [Pulse Oximeter] Respiratory Rate 11 L 16 16 Blood Pressure 208/100 H 200/93 H 174/89 H Blood Pressure [Le ft Upper Arm] Pulse Oximetry 95 96 98 Oxygen Delivery Ar thod 03/21/25 11:45 03/21/25 12:00 03/21/25 12:02 Temperature Pulse Rate 66 68 67 Pulse Rate [Pulse Oximeter] Respiratory Rate 12 13 14 Blood Pressure 184/92 H Blood Pressure [Le ft Upper Arm] Pulse Oximetry 95 95 92 Oxygen Delivery Me od Hospitalist - H&P: Result Labs Labs: Short CBC 03/21/25 Range/Units 08:15 WBC 7.15 (4.50-11.00) K/uL Hgb 15.1 (12.0-16.0) gm/dL Hct 45.8 (33.0-51.0) % Plt Count 266 (140-440) K/uL BMP 03/21/25 08:15 Sodium 141 Potassium 4.2 Chloride 108 Carbon Dioxide 25 BUN 22 Creatinine 1.1 Glucose 115 Calcium 9.7 Liver Function 03/21/25 Range/Units 08:15 Total Bilirubin 0.8 (0.1-1.5) mg/dL AST 33 (12-35) U/L ALT 20 (4-35) U/L Alkaline Phosphatase 58 (40-150) U/L Albumin 4.7 (3.3-5.0) g/dL ECG Attestation: I personally reviewed and interpreted this ECG as follows: ECG interpretation date: 03/21/25 Interpretation: NSR, LBBB, HR 61 BPM Imaging MR Brain: Radiologist's impression: INDICATION: Right-sided weakness. Incoordination. TECHNIQUE: Brain MRI without contrast. COMPARISON: Head CT from 03/21/2025. FINDINGS: Focus of diffusion restriction/minimal FLAIR hyperintensity within the posterior putamen/periventricular ferrell radiata which measures 10 x 17 millimeters in axial plane. No evidence of acute or chronic intracranial blood products. Patchy FLAIR hyperintensities within the supratentorial white matter and brainstem, typical for chronic microvascular ischemic change. No mass effect or herniation. No hydrocephalus or extra-axial collections. The pituitary gland, parasellar structures and optic chiasm are normal. Posterior fossa is normal. All the major intracranial vascular structures demonstrate normal flow-related signal. The orbital contents are normal. No calvarial or skull base marrow replacing process. No obstructive sinus disease. No extracranial soft tissue findings. IMPRESSION: 1. 17 millimeter acute infarction within the left posterior putamen/periventricular coronary radiata, likely lacunar in etiology. 2. Mild chronic microvascular ischemic changes. Dictated by Nolan Maldonado MD @ 03/21/2025 11:42:16 AM (Electronically Signed)
--- NOTE | 2025-03-21 19:36 | PC.NURSE ---
The patient arrived to the unit this afternoon post CVA. RUE and RLE severe weakness is noted. Ataxia, and drift w/ RUE. Alert and orientated, no slurred or garbled speech. Bedside swallow was completed with no signs of aspiration. Ate dinner in the chair, Ax2 w/ Minnie steady due to the patient R sied weakness. Call light within reach. The patients family has visited throughout the day. Incontinent of bladder at baseline per the patient. Continent of bowel this shift. Tosha ALEMAN BSN
[2025-03-21] MEDS: AMITRIPTYLINE 25 MG TABLET PO (20:54)
[2025-03-21] MEDS: ALPRAZolam 0.25 MG TABLET PO ×2 (20:54→23:42)
[2025-03-21] MEDS: SODIUM CHLORIDE 0.9 % (FLUSH) 10 ML SYRINGE 5 ML IVF (20:54)
--- NOTE | 2025-03-21 23:49 | PC.NURSE ---
End of Shift: Patient pleasant and cooperative. Alert and oriented. Afebrile. Denies pain. Turn and reposition in bed. Incontinent x1.
[2025-03-22 02:51] VITALS: BP 149/62; PULSE 75; RESP 16; O2SAT 95
--- NOTE | 2025-03-22 05:14 | PC.NURSE ---
[id number] Pt slept during the night, continues to have significant R sided weakness. At the beginning of shift, complained of R sided muscle spasms, requested her other half of xanax, and pt able to sleep remainder of the night.
[2025-03-22 06:38] LABS: Hematocrit 41.8 % (33.0-51.0); Hemoglobin* 13.8 gm/dL (12.0-16.0); Mean Corpuscular HGB Conc 33 gm/dL (32-36); Mean Corpuscular Hemoglobin 30 pg (26-34); Mean Corpuscular Volume 91 fL (80-100); Platelet Count* 248 K/uL (140-440); Red Blood Count 4.61 m/uL (4.00-5.20); White Blood Count* 8.38 K/uL (4.50-11.00)
[2025-03-22 06:46] LABS: Slide Review Reflex No
[2025-03-22 06:52] LABS: Chloride* 110 mmol/L (96-114)
[2025-03-22 06:53] LABS: Potassium* 3.7 mmol/L (3.6-5.1); Sodium* 141 mmol/L (135-149)
[2025-03-22 06:55] LABS: Blood Urea Nitrogen* 24 mg/dL (7-30); Creatinine* 1.1 mg/dL (0.5-1.5); Est. Creatinine Clearance* 43.34; Estimated Glomerular Filt Rate 51 ml/min
[2025-03-22 06:56] LABS: Anion Gap 5 mEq/L (7-15); Carbon Dioxide* 26 mmol/L (20-32); Cholesterol* 243 mg/dL (90-199); Glucose* 111 mg/dL (60-115); HDL Cholesterol* 64 mg/dL (>=50); LDL Cholesterol Calculated 141 mg/dL (<100); Magnesium* 2.3 mg/dL (1.5-2.6); Triglycerides* 191 mg/dL (40-149)
[2025-03-22 07:00] VITALS: BP 159/72; PULSE 63; PULSE 67; RESP 16; TEMP 36.6; O2SAT 96
[2025-03-22] MEDS: LEVOTHYROXINE 125 MCG TABLET PO (08:03)
[2025-03-22] MEDS: oxyBUTYnin chloride 5 MG TAB.ER.24 15 MG PO (09:13)
[2025-03-22] MEDS: CLOPIDOGREL 75 MG TABLET PO (09:13)
[2025-03-22] MEDS: ASPIRIN 81 MG TAB.CHEW PO (09:13)
[2025-03-22] MEDS: SODIUM CHLORIDE 0.9 % (FLUSH) 10 ML SYRINGE 5 ML IVF ×2 (09:14→20:12)
--- NOTE | 2025-03-22 09:26 | NUTR.NU ---
RDN with nutrition screen related to positive skin risk. Patient admitted for acute lacunar infarction and cystitis. Right-sided deficit noted. Current weight 168lb 7oz; height 5ft 9in; BMI 24.9 kg/m2. No significant weight changes noted recently. Current diet order is NPO. Speech Therapy Eval today. No nutrition interventions at this time with stable weight and current diet order. RDN will continue to monitor and follow-up as appropriate.
[2025-03-22 10:59] LABS: Hemoglobin A1C* 5.9 % (0-5.6)
[2025-03-22 11:00] VITALS: BP 170/51; PULSE 66; RESP 16; TEMP 36.6; O2SAT 96
--- NOTE | 2025-03-22 12:59 | PC.SOCIAL ---
Addendum entered by APPLE Tinajero 03/22/25 15:27: Discharge planning: print room worker updated pt that [facility] is reviewing her referral for acute rehab placement. Social work to follow-up as needed. Original Note: Discharge planning: Pt is being recommended for acute rehab by PT. print room worker met with the pt and her daughter, Vikki, to discuss acute rehab options. Pt states she has family that live in [place] and she would be interested in [facility] in [place] as her first choice and then [facility] as her second choice. print room worker left messages at both facilities asking about female acute rehab bed availability. print room worker heard back from [facility] in [place] that they do not have any beds available for acute rehab for external referrals, as they currently have a long waitlist for internal referrals. print room worker heard back from [facility] and they stated this worker could fax a referral for them to review. [facility] stated that they anticipate female acute rehab beds early next week, but that they do not take external acute rehab referrals over the weekend. print room worker faxed the referral to [facility] at fax number #[phone]. [facility]'s office phone number is #[phone]. Social work to follow-up as needed.
--- NOTE | 2025-03-22 14:50 | PM.IMPN1 ---
Assessment and Plan Assessment and plan (1) Acute lacunar infarction: Problem comment: Clinical manifestation with right hemiparesis. -Brain MRI: 17 millimeter acute infarction within the left posterior putamen/periventricular coronary radiata, likely lacunar in etiology. -Pt is outside the window for thrombolytics and is not a candidate for [facility] thrombectomy as she doesnt have an LVO. -Frequent neuro exams -Permissive HTN, treat if only SBP > 220, and or DBP > 110. -Control Bl. sugar, keep < 180 -If neurological status detoriorates, order a stat CTH w/out IV cont. -Neurologist rec DAPT Tx for 21 days. -PT/OT/ST -NPO until ST eval or pt passes bedside swallow test. -No chem DVT PPx until neuro recommends it. SCDs for now. -ECHO is normal except for PFO with positive bubble study. No cardiac source of embolism. Status: Acute (2) Essential hypertension: Problem comment: Hold lisinopril. After discharge target systolic blood pressure around 160 with long-term blood pressure goal of systolic less than 130. Status: Acute (3) Hyperlipidemia: Problem comment: LDL cholesterol is 141. High-dose rosuvastatin to get LDL less than 70. Status: Acute (4) Interstitial cystitis: Problem comment: On oxybutynin and amitriptyline. Check bladder scan for new neurologic problems with bladder. Status: Acute (5) Discharge planning issues: Problem comment: Patient lives with her at [facility]. He is disabled by Lewy body dementia. We are recommending acute rehab after this hospital stay. Status: Acute Plan Continue in hospital for evaluation management of acute stroke with right hemiparesis. Optimize risk factors and treatment. Anticipate discharge to acute rehab when available. Plan of care is discussed with patient, sister, daughter, Stroke Neurology. Total time spent today is 60 minutes in coordination of care and discussions with above family and providers about plan of care. Subjective Date Seen: 03/22/25 Interval history: Angela Valencia is a right-handed 79 year old female w/ PMHx of HTN, hypothyroidism, glaucoma, and interstitial cystitis presented to ED w/ Rt sided weakness. Pt LSN was ~ 10 PM yesterday. At the ED, CTH, CTA neck and brain MRI were done. Her MRI confirmed the presence of an acute Lt Lacunar infarct in the Putamen. Contacted Tele stroke team, who assessed her and stated that she is outside the window for thrombolytics and is not a candidate for [facility] thrombectomy as she doesnt have an LVO. Neurologist rec a DAPT Tx for 21 days, but didnt load her w/ ASA or plavix, just started w/ ASA 81 mg dose and Plavix 75 mg. Pt denies any Hx of strokes, TIAs or heart diseases except for HTN and Hx of ectopic beats. Not on any blood thinners. 03/22/2025: Patient reports that she feels a little weaker on the right side. She thought yesterday she can slightly move her right arm and leg but not at all today. She is having no troubles with swallowing. No sensory deficits. No pain. No other neurologic symptoms. She is found to have hyperlipidemia with an LDL cholesterol of 141 and a hemoglobin A1c of 5.9. She has been in normal sinus rhythm. Echocardiogram is pending. Stroke Neurology recommendations reviewed. Exam Narrative: Exam Narrative: She is alert and appears in no distress. Mild right facial droop. Mild tongue weakness to the right. No sensory cranial nerve deficit. Neck is supple without mass or adenopathy. Respirations are unlabored. Cardiovascular: S1, S2, regular rate and rhythm. Upper extremities: Bilateral intact sensation. Right upper extremity is flaccid with just a trace of muscle activation seen with attempting movement. Left upper extremity has normal strength. Lower extremities: Bilateral intact sensation and pulses. Right lower extremity is flaccid. Left lower extremity with normal strength in hip flexion, knee flexion and extension, ankle dorsiflexion plantar flexion and great toe dorsiflexion. No edema Const: Vital Signs, click to edit/add: Vital Signs - 24 hr 03/21/25 15:02 03/21/25 19:00 03/21/25 23:00 Temperature 98.0 F 98.1 F 98.1 F Pulse Rate Pulse Rate [Right Pulse Oximeter] 68 66 68 Respiratory Rate 18 16 16 Blood Pressure [Le ft Arm] 169/76 H 158/74 H 167/104 H Pulse Oximetry 93 97 94 Oxygen Delivery Me thod Room Air Room Air Room Air 03/21/25 23:00 03/22/25 02:51 03/22/25 07:00 Temperature Pulse Rate 73 Pulse Rate [Right Pulse Oximeter] 75 63 Respiratory Rate 16 16 Blood Pressure [Le ft Arm] 149/62 H Pulse Oximetry 95 Oxygen Delivery Me thod Room Air 03/22/25 07:00 03/22/25 07:00 03/22/25 11:00 Temperature 97.8 F 97.8 F Pulse Rate 67 Pulse Rate [Right Pulse Oximeter] 63 66 Respiratory Rate 16 16 Blood Pressure [Le ft Arm] 159/72 H 170/51 H Pulse Oximetry 96 96 Oxygen Delivery Me thod Room Air Room Air Documenting provider has reviewed patient's vital signs: yes Labs Labs: Laboratory Results - last 24 hr 03/22/25 03/22/25 05:47 10:34 WBC 8.38 RBC 4.61 Hgb 13.8 Hct 41.8 MCV 91 MCH 30 MCHC 33 Plt Count 248 Sodium 141 Potassium 3.7 Chloride 110 Carbon Dioxide 26 Anion Gap 5 L BUN 24 Creatinine 1.1 Estimated Creat Clear 43.34 Estimated GFR 51 Glucose 111 Hemoglobin A1c 5.9 H Calcium 9.0 Magnesium 2.3 Triglycerides 191 H Cholesterol 243 H LDL Cholesterol, Calc 141 H HDL Cholesterol 64 Lab Acknowledgement Test Added
[2025-03-22 15:00] VITALS: BP 188/89; PULSE 58; PULSE 65; RESP 14; TEMP 36.8; O2SAT 99
--- NOTE | 2025-03-22 15:36 | PC.NURSE ---
End of shift: Patient is pleasant and cooperative, a/o x4. Patient encouraged to get up and move to the chair for meals, jalen steady used and patient tolerated activity. Swallow study done and patient did not have any issues or trouble with swallowing per speech. VSS, BP elevated, MD aware. patient on RA. afebrile this shift. Patient agreeable to use a purewick d/t urinary incontinence. Patient denies, pain, N/V/SOB.
[2025-03-22 19:00] VITALS: BP 160/71; PULSE 62; RESP 15; TEMP 36.7; O2SAT 99
[2025-03-22] MEDS: AMITRIPTYLINE 25 MG TABLET PO (20:11)
[2025-03-22] MEDS: BACLOFEN 10 MG TABLET 5 MG PO (20:12)
--- NOTE | 2025-03-22 21:58 | PC.NURSE ---
Patient transfers with jalen steady or 2 person pivot. Patients RUE and RLE is flaccid S/P stroke. Patient is A&O x 3, CMS intact, PIV patent. Patient is tolerating a regular diet and was up in the chair for all meals. Patient utilizes bed and chair alarm for safety. Patient incontinent of urine and has external catheter in place.
[2025-03-22 23:00] VITALS: BP 167/75; PULSE 59; RESP 16; TEMP 36.6; O2SAT 94
[2025-03-23] VITALS (9 sets, daily range): BP systolic 136–178; BP diastolic 87–93; PULSE 55–93; RESP 16; TEMP 36.6–36.7; O2SAT 93–97
[2025-03-23] MEDS: ALPRAZolam 0.25 MG TABLET PO ×2 (00:01→21:13)
--- NOTE | 2025-03-23 06:36 | PC.NURSE ---
End of shift report [id number]: Pt has?permissive hypertension. Afebrile. Denies pain. Patient RUE and RLE remain flaccid s/p stroke. External catheter is in place due to incontinence. Bed alarm on, call light within reach.?
[2025-03-23] MEDS: LEVOTHYROXINE 125 MCG TABLET PO (08:16)
[2025-03-23] MEDS: oxyBUTYnin chloride 5 MG TAB.ER.24 15 MG PO (09:20)
[2025-03-23] MEDS: SODIUM CHLORIDE 0.9 % (FLUSH) 10 ML SYRINGE 5 ML IVF ×2 (09:21→21:12)
[2025-03-23] MEDS: ASPIRIN 81 MG TAB.CHEW PO (09:21)
[2025-03-23] MEDS: CLOPIDOGREL 75 MG TABLET PO (09:21)
[2025-03-23] MEDS: ROSUVASTATIN CALCIUM 10 MG TABLET 20 MG PO (09:21)
--- NOTE | 2025-03-23 15:00 | PC.NURSE ---
End of shift: Patient is pleasant and cooperative, a/o x4. Patient encouraged to get up and move to the chair for meals, jalen steady used and patient tolerated activity. VSS, Permissive HTN noted, MD aware. patient on RA. afebrile this shift. Patient using purewick d/t urinary incontinence. Patient denies, pain, N/V/SOB. Patient tolerating a reg diet, no issues noted with swallowing. Neuro's completed w/Vitals, right sided weakness/flaccid arm and legs observed. Tele NSR w/BBB and depressed ST wave and prolonged QT. MD aware. Plan for patient: awaiting acute care facility for rehab.
--- NOTE | 2025-03-23 16:06 | P.IMPN_ITS ---
Assessment and Plan Assessment and plan (1) Acute lacunar infarction: Problem comment: Clinical manifestation with right hemiparesis. -Brain MRI: 17 millimeter acute infarction within the left posterior putamen/periventricular coronary radiata, likely lacunar in etiology. -Pt is outside the window for thrombolytics and is not a candidate for [facility] thrombectomy as she doesnt have an LVO. -Frequent neuro exams -Permissive HTN, treat if only SBP > 220, and or DBP > 110. -Control Bl. sugar, keep < 180 -If neurological status detoriorates, order a stat CTH w/out IV cont. -Neurologist rec DAPT Tx for 21 days. -PT/OT/ST -NPO until ST eval or pt passes bedside swallow test. -No chem DVT PPx until neuro recommends it. SCDs for now. -ECHO is normal except for PFO with positive bubble study. No cardiac source of embolism. Outpatient Stroke Neurology and Cardiology follow-up recommended Status: Acute (2) Essential hypertension: Problem comment: Hold lisinopril. After discharge target systolic blood pressure around 160 with long-term blood pressure goal of systolic less than 130. Status: Acute (3) Hyperlipidemia: Problem comment: LDL cholesterol is 141. High-dose rosuvastatin to get LDL less than 70. Status: Acute (4) Interstitial cystitis: Problem comment: On oxybutynin and amitriptyline. Check bladder scan for new neurologic problems with bladder. Status: Acute (5) Discharge planning issues: Problem comment: Patient lives with her at [facility] on the [facility]. He is disabled by Lewy body dementia. We are recommending acute rehab after this hospital stay. Status: Acute Plan Continue in hospital for ongoing acute stroke management and rehab pending outpatient acute stroke rehab. Total Time Spent Total Time Spent: Total time spent today is 30 minutes in coordination of care and discussing with patient and other providers management of stroke Subjective Date Seen: 03/23/25 Interval history: Angela Valencia is a right-handed 79 year old female w/ PMHx of HTN, hypothyroidism, glaucoma, and interstitial cystitis presented to ED w/ Rt sided weakness. Pt LSN was ~ 10 PM yesterday. At the ED, CTH, CTA neck and brain MRI were done. Her MRI confirmed the presence of an acute Lt Lacunar infarct in the Putamen. Contacted Tele stroke team, who assessed her and stated that she is outside the window for thrombolytics and is not a candidate for [facility] thrombectomy as she doesnt have an LVO. Neurologist rec a DAPT Tx for 21 days, but didnt load her w/ ASA or plavix, just started w/ ASA 81 mg dose and Plavix 75 mg. Pt denies any Hx of strokes, TIAs or heart diseases except for HTN and Hx of ectopic beats. Not on any blood thinners. 03/22/2025: Patient reports that she feels a little weaker on the right side. She thought yesterday she can slightly move her right arm and leg but not at all today. She is having no troubles with swallowing. No sensory deficits. No pain. No other neurologic symptoms. She is found to have hyperlipidemia with an LDL cholesterol of 141 and a hemoglobin A1c of 5.9. She has been in normal sinus rhythm. Echocardiogram is pending. Stroke Neurology recommendations reviewed. 03/23/2025: Patient reports no new concerns today. She still reports no motor function in her right upper extremity. Some slight improvement in her left lower extremity. She is able to abduct her hip a bit and also activate her quadriceps but unable to get her foot off the bed. Exam Narrative: Exam Narrative: She is alert and appears in no distress. Speech is normal. Oropharynx normal. Neck is supple out mass or adenopathy. Respirations are clear to auscultation. Cardiovascular: S1, S2, regular rate and rhythm. Abdomen is soft without tenderness. Right upper extremity is flaccid with intact sensation. Left upper extremity has normal strength and sensation. Right lower extremity has minimal motion with her ability to barely abduct her right hip and she activates her quad muscles without being able to extend her knee. Const: Vital Signs, click to edit/add: Vital Signs - 24 hr 03/22/25 19:00 03/22/25 19:00 03/22/25 23:00 Temperature 98.1 F 98 F Pulse Rate Pulse Rate [Right Pulse Oximeter] 62 62 59 L Respiratory Rate 15 16 Blood Pressure [Le ft Arm] 160/71 H 167/75 H Pulse Oximetry 99 94 Oxygen Delivery Me thod Room Air Room Air 03/22/25 23:00 03/22/25 23:00 03/23/25 01:42 Temperature Pulse Rate 55 L Pulse Rate [Right Pulse Oximeter] 59 L Respiratory Rate 16 Blood Pressure [Le ft Arm] Pulse Oximetry Oxygen Delivery Me thod 03/23/25 03:00 03/23/25 03:00 03/23/25 07:00 Temperature 98.1 F Pulse Rate 63 Pulse Rate [Right Pulse Oximeter] 67 67 Respiratory Rate 16 Blood Pressure [Le ft Arm] 178/89 H Pulse Oximetry 97 Oxygen Delivery Mi thod Room Air 03/23/25 07:00 03/23/25 07:00 03/23/25 07:00 Temperature 98.0 F Pulse Rate Pulse Rate [Right Pulse Oximeter] 76 76 76 Respiratory Rate 16 16 Blood Pressure [Le ft Arm] 136/93 H Pulse Oximetry 96 Oxygen Delivery Mi thod Room Air 03/23/25 11:00 03/23/25 11:00 Temperature 98.0 F Pulse Rate Pulse Rate [Right Pulse Oximeter] 76 90 Respiratory Rate 16 Blood Pressure [Le ft Arm] 146/93 H Pulse Oximetry 94 Oxygen Delivery Me thod Room Air Documenting provider has reviewed patient's vital signs: yes
[2025-03-23] MEDS: BACLOFEN 10 MG TABLET 5 MG PO ×2 (16:31→23:06)
[2025-03-23] MEDS: AMITRIPTYLINE 25 MG TABLET PO (21:12)
[2025-03-23] MEDS: ENOXAPARIN 40 MG/0.4 ML INJ SUBCUT (21:13)
--- NOTE | 2025-03-23 21:52 | PC.NURSE ---
New 20 gauge PIV in Left AC patent. Patients Right upper extremity and Right lower extremity remains flaccid, sensation intact. External catheter in place and draining clear braxton urine. Patient repositioned for skin care maintenance.
[2025-03-24] VITALS (7 sets, daily range): BP systolic 147–170; BP diastolic 84–100; PULSE 73–86; RESP 16–18; TEMP 36.4–36.9; O2SAT 91–99
--- NOTE | 2025-03-24 06:21 | PC.NURSE ---
End of shift [id number]: A&O pleasant and cooperative. Hypertensive otherwise VSS. Denies pain but reports not being able to get comfortable. Throughout night. Tuen and repo q2h or at pt request. Right sided weakness. Pt was able to wiggle right toes overnight. Purwik in place. Up w/ a2 and jalen steady to commode. Tolerates well. Using call light appropriately.
[2025-03-24] MEDS: LEVOTHYROXINE 125 MCG TABLET PO (08:14)
[2025-03-24] MEDS: oxyBUTYnin chloride 5 MG TAB.ER.24 15 MG PO (09:07)
[2025-03-24] MEDS: ROSUVASTATIN CALCIUM 10 MG TABLET 20 MG PO (09:08)
[2025-03-24] MEDS: SODIUM CHLORIDE 0.9 % (FLUSH) 10 ML SYRINGE 5 ML IVF ×2 (09:08→21:07)
[2025-03-24] MEDS: ASPIRIN 81 MG TAB.CHEW PO (09:08)
[2025-03-24] MEDS: CLOPIDOGREL 75 MG TABLET PO (09:08)
--- NOTE | 2025-03-24 11:52 | PM.IMPN1 ---
Assessment and Plan Assessment and plan (1) Acute lacunar infarction: Problem comment: Clinical manifestation with right hemiparesis. -Brain MRI: 17 millimeter acute infarction within the left posterior putamen/periventricular coronary radiata, likely lacunar in etiology. -Pt is outside the window for thrombolytics and is not a candidate for [facility] thrombectomy as she doesnt have an LVO. -Permissive HTN, treat if only SBP > 220, and or DBP > 110. -Control Bl. sugar, keep < 180 -If neurological status detoriorates, order a stat CTH w/out IV cont. -Neurologist rec DAPT Tx for 21 days. -PT/OT/ST -Speech eval: relatively normal -DVT prophylaxis with enoxaparin -ECHO is normal except for PFO with positive bubble study. No cardiac source of embolism. -outpatient Zio patch secured entrance monitor recommended. Normal sinus rhythm during hospital stay. -Outpatient Stroke Neurology and Cardiology follow-up recommended Status: Acute (2) Essential hypertension: Problem comment: Hold lisinopril. After discharge target systolic blood pressure around 160 with long-term blood pressure goal of systolic less than 130. Status: Acute (3) Hyperlipidemia: Problem comment: LDL cholesterol is 141. High-dose rosuvastatin to get LDL less than 70. Status: Acute (4) Interstitial cystitis: Problem comment: On oxybutynin and amitriptyline. Check bladder scan for new neurologic problems with bladder. Status: Acute (5) Discharge planning issues: Problem comment: Patient lives with her at [facility] on the [facility]. He is disabled by Lewy body dementia. We are recommending acute rehab after this hospital stay. Status: Acute Plan Continue in hospital for acute stroke cares and rehab. Pending discharge to acute rehab probably tomorrow. Total Time Spent Total Time Spent: Total time spent is 35 minutes, almost all that time discussing with patient and family ongoing evaluation and management of stroke Subjective Date Seen: 03/24/25 Interval history: Angela Valencia is a right-handed 79 year old female w/ PMHx of HTN, hypothyroidism, glaucoma, and interstitial cystitis presented to ED w/ Rt sided weakness. Pt LSN was ~ 10 PM yesterday. At the ED, CTH, CTA neck and brain MRI were done. Her MRI confirmed the presence of an acute Lt Lacunar infarct in the Putamen. Contacted Tele stroke team, who assessed her and stated that she is outside the window for thrombolytics and is not a candidate for [facility] thrombectomy as she doesnt have an LVO. Neurologist rec a DAPT Tx for 21 days, but didnt load her w/ ASA or plavix, just started w/ ASA 81 mg dose and Plavix 75 mg. Pt denies any Hx of strokes, TIAs or heart diseases except for HTN and Hx of ectopic beats. Not on any blood thinners. 03/22/2025: Patient reports that she feels a little weaker on the right side. She thought yesterday she can slightly move her right arm and leg but not at all today. She is having no troubles with swallowing. No sensory deficits. No pain. No other neurologic symptoms. She is found to have hyperlipidemia with an LDL cholesterol of 141 and a hemoglobin A1c of 5.9. She has been in normal sinus rhythm. Echocardiogram is pending. Stroke Neurology recommendations reviewed. 03/23/2025: Patient reports no new concerns today. She still reports no motor function in her right upper extremity. Some slight improvement in her left lower extremity. She is able to abduct her hip a bit and also activate her quadriceps but unable to get her foot off the bed. 03/24/2025: Patient has no new concerns today. She feels like her motor function is about the same as yesterday. She is able to eat. She is struggling to use her left hand as a right-hand dominant person. Exam Narrative: Exam Narrative: She is alert and oriented to her circumstances. Speech is fluent. Her face has more symmetric strength today. Less facial droop on the right and previously. Right upper extremity remains flaccid. Intact sensation and no neglect. Right lower extremity she is able to abduct her thigh. No significant quadriceps activation today. Foot and ankle without motion. Intact sensation. No edema Const: Vital Signs, click to edit/add: Vital Signs - 24 hr 03/23/25 15:00 03/23/25 15:03/23/25 15:00 Temperature 97.8 F Pulse Rate Pulse Rate [Right Pulse Oximeter] 56 L 56 L 56 L Respiratory Rate 16 16 Blood Pressure [Le ft Arm] 146/93 H Pulse Oximetry 96 Oxygen Delivery Me thod Room Air 03/23/25 15:00 03/23/25 18:41 03/23/25 18:42 Temperature 97.8 F Pulse Rate 89 Pulse Rate [Right Pulse Oximeter] 93 93 Respiratory Rate 16 Blood Pressure [Le ft Arm] 162/90 H Pulse Oximetry 93 Oxygen Delivery Ar thod Room Air 03/23/25 23:17 03/23/25 23:37 03/24/25 00:37 Temperature 98.1 F Pulse Rate 86 Pulse Rate [Right Pulse Oximeter] 86 86 Respiratory Rate 16 Blood Pressure [Le ft Arm] 171/87 H Pulse Oximetry 95 Oxygen Delivery Ar thod Room Air 03/24/25 03:35 03/24/25 03:35 03/24/25 07:00 Temperature 98.4 F Pulse Rate 77 Pulse Rate [Right Pulse Oximeter] 85 85 Respiratory Rate 18 Blood Pressure [Le ft Arm] 150/100 H Pulse Oximetry 95 Oxygen Delivery Ar thod Room Air 03/24/25 07:00 03/24/25 07:00 03/24/25 07:00 Temperature 97.6 F Pulse Rate Pulse Rate [Right Pulse Oximeter] 83 83 83 Respiratory Rate 16 16 Blood Pressure [Le ft Arm] 150/85 H Pulse Oximetry 94 [facility] Documenting provider has reviewed patient's vital signs: yes
[2025-03-24] MEDS: BACLOFEN 10 MG TABLET 5 MG PO ×2 (14:53→23:07)
--- NOTE | 2025-03-24 18:49 | PC.NURSE ---
End of shift: Patient is pleasant and cooperative, a/o x4. Patient encouraged to get up and move to the chair for meals, jalen steady used and patient tolerated activity. VSS, Permissive HTN noted, MD aware. patient on RA. afebrile this shift. Patient using purewick d/t urinary incontinence. Patient denies, pain, N/V/SOB. Patient tolerating a reg diet, no issues noted with swallowing. Neuro's completed w/Vitals, right sided weakness/flaccid arm and legs observed. Tele NSR w/BBB and depressed ST wave and prolonged QT. MD aware. Plan for patient: awaiting acute care facility for rehab possibly [facility] on 03/25/2025. Patient had a BM x2 and voided well.
[2025-03-24] MEDS: ENOXAPARIN 40 MG/0.4 ML INJ SUBCUT (21:05)
[2025-03-24] MEDS: AMITRIPTYLINE 25 MG TABLET PO (21:05)
[2025-03-24] MEDS: ALPRAZolam 0.25 MG TABLET PO (21:05)
[2025-03-25] VITALS (10 sets, daily range): BP systolic 133–176; BP diastolic 78–91; PULSE 71–83; RESP 17–18; TEMP 36.2–37.1; O2SAT 92–98
--- NOTE | 2025-03-25 06:49 | PC.NURSE ---
Shift note ([id number]): Patient pleasant, alert and oriented. Minnie-steady with assist of two for transfers. Denies pain. Purewick placed. Repositioned during night when pt requested. Neuros q 4hrs. ?
[2025-03-25] MEDS: ROSUVASTATIN CALCIUM 10 MG TABLET 20 MG PO (08:59)
[2025-03-25] MEDS: ASPIRIN 81 MG TAB.CHEW PO (08:59)
[2025-03-25] MEDS: oxyBUTYnin chloride 5 MG TAB.ER.24 15 MG PO (08:59)
[2025-03-25] MEDS: CLOPIDOGREL 75 MG TABLET PO (08:59)
[2025-03-25] MEDS: LEVOTHYROXINE 125 MCG TABLET PO (08:59)
[2025-03-25] MEDS: SODIUM CHLORIDE 0.9 % (FLUSH) 10 ML SYRINGE 5 ML IVF ×2 (09:00→21:02)
--- NOTE | 2025-03-25 14:21 | PC.NURSE ---
end of shift. pt has been very pleasant. she is alert x4. SL is patent. she is a 2 assist and turn and pivot. Denies pain. Purewick placed. she is eating and drinking. she is right handed and us able to use left hand/arm. PT and OT worked with her. she has been in chair today
--- NOTE | 2025-03-25 14:25 | P.IMPN_ITS ---
Assessment and Plan Assessment and plan (1) Acute lacunar infarction: Problem comment: Clinical manifestation with right hemiparesis. -Brain MRI: 17 millimeter acute infarction within the left posterior putamen/periventricular coronary radiata, likely lacunar in etiology. -Pt is outside the window for thrombolytics and is not a candidate for [facility] thrombectomy as she doesnt have an LVO. -Permissive HTN, treat if only SBP > 220, and or DBP > 110. -Control Bl. sugar, keep < 180 -If neurological status detoriorates, order a stat CTH w/out IV cont. -Neurologist rec DAPT Tx for 21 days. -PT/OT/ST -Speech eval: relatively normal -DVT prophylaxis with enoxaparin -ECHO is normal except for PFO with positive bubble study. No cardiac source of embolism. -outpatient Zio patch court recording monitor recommended. Normal sinus rhythm during hospital stay. -Outpatient Stroke Neurology and Cardiology follow-up recommended Status: Acute (2) Essential hypertension: Problem comment: Permissive hypertension. Restart lisinopril after discharge. Target long-term blood pressure under 130/80 Status: Acute (3) Hyperlipidemia: Problem comment: LDL cholesterol is 141. High-dose rosuvastatin to get LDL less than 70. Status: Acute (4) Interstitial cystitis: Problem comment: On oxybutynin and amitriptyline. Check bladder scan for new neurologic problems with bladder. Status: Acute (5) Discharge planning issues: Problem comment: Patient lives with her at [facility] on the [facility]. He is disabled by Lewy body dementia. We are recommending acute rehab after this hospital stay. Status: Acute Plan Continue in-hospital with therapy for stroke pending transfer to acute rehab Total Time Spent Total Time Spent: Total time spent today is 35 minutes in coordination of care discussing with patient and other providers plan of disposition Subjective Date Seen: 03/25/25 Interval history: Angela Valencia is a right-handed 79 year old female w/ PMHx of HTN, hypothyroidism, glaucoma, and interstitial cystitis presented to ED w/ Rt sided weakness. Pt LSN was ~ 10 PM yesterday. At the ED, CTH, CTA neck and brain MRI were done. Her MRI confirmed the presence of an acute Lt Lacunar infarct in the Putamen. Contacted Tele stroke team, who assessed her and stated that she is outside the window for thrombolytics and is not a candidate for [facility] thrombectomy as she doesnt have an LVO. Neurologist rec a DAPT Tx for 21 days, but didnt load her w/ ASA or plavix, just started w/ ASA 81 mg dose and Plavix 75 mg. Pt denies any Hx of strokes, TIAs or heart diseases except for HTN and Hx of ectopic beats. Not on any blood thinners. 03/22/2025: Patient reports that she feels a little weaker on the right side. She thought yesterday she can slightly move her right arm and leg but not at all today. She is having no troubles with swallowing. No sensory deficits. No pain. No other neurologic symptoms. She is found to have hyperlipidemia with an LDL cholesterol of 141 and a hemoglobin A1c of 5.9. She has been in normal sinus rhythm. Echocardiogram is pending. Stroke Neurology recommendations reviewed. 03/23/2025: Patient reports no new concerns today. She still reports no motor function in her right upper extremity. Some slight improvement in her left lower extremity. She is able to abduct her hip a bit and also activate her quadriceps but unable to get her foot off the bed. 03/24/2025: Patient has no new concerns today. She feels like her motor function is about the same as yesterday. She is able to eat. She is struggling to use her left hand as a right-hand dominant person. 03/25/2025: Patient reports no new concerns today. She feels like her motor function is about the same as yesterday. Exam Narrative: Exam Narrative: She is alert and appears in no distress. Speech is fluent. She has mild right facial weakness which is improved since admission. Right upper extremity is flaccid with intact sensation. Right lower extremity has some AP duction and she is able to activate her quadriceps today. No motion and foot or ankle. Const: Vital Signs, click to edit/add: Vital Signs - 24 hr 03/24/25 15:00 03/24/25 15:03/24/25 15:00 Temperature 97.6 F Pulse Rate Pulse Rate [Right Pulse Oximeter] 76 76 76 Respiratory Rate 16 16 Blood Pressure [Le ft Arm] 170/94 H Pulse Oximetry 99 Oxygen Delivery Me thod Room Air 03/24/25 15:00 03/24/25 19:00 03/24/25 19:00 Temperature 98.3 F Pulse Rate 76 Pulse Rate [Right Pulse Oximeter] 75 75 Respiratory Rate 18 Blood Pressure [Le ft Arm] 158/88 H Pulse Oximetry 93 Oxygen Delivery Me thod Room Air 03/24/25 23:00 03/24/25 23:00 03/25/25 02:28 Temperature 98.4 F Pulse Rate 73 Pulse Rate [Right Pulse Oximeter] 75 75 Respiratory Rate 16 Blood Pressure [Le ft Arm] 167/84 H Pulse Oximetry 91 Oxygen Delivery Tx thod Room Air 03/25/25 02:28 03/25/25 06:56 03/25/25 07:30 Temperature 98.3 F Pulse Rate 71 Pulse Rate [Right Pulse Oximeter] 77 72 Respiratory Rate 17 18 Blood Pressure [Le ft Arm] 156/84 H Pulse Oximetry 93 Oxygen Delivery Tx thod Room Air 03/25/25 07:45 03/25/25 11:54 Temperature 97.9 F 97.2 F L Pulse Rate Pulse Rate [Right Pulse Oximeter] 72 77 Respiratory Rate 18 18 Blood Pressure [Le ft Arm] 152/91 H 133/83 Pulse Oximetry 94 92 Oxygen Delivery Tx thod Room Air Room Air Documenting provider has reviewed patient's vital signs: yes
[2025-03-25 14:58] LABS: Basophils Absolute Auto 0.03 K/uL (0.00-0.30); Basophils Percent Auto 0.3 % (0.0-3.0); Eosinophils Absolute Auto 0.07 K/uL (0.00-0.50); Eosinophils Percent Auto 0.8 % (0.0-7.0); Hematocrit 46.2 % (33.0-51.0); Hemoglobin* 15.3 gm/dL (12.0-16.0); Immature Granulocytes Abs Auto 0.02 K/uL (0.00-0.30); Immature Granulocytes Pct Auto 0.2 %; Lymphocytes Percent Auto 18.7 % (20-44); Mean Corpuscular HGB Conc 33 gm/dL (32-36); Mean Corpuscular Hemoglobin 30 pg (26-34); Mean Corpuscular Volume 90 fL (80-100); Monocytes Percent Auto 4.7 % (0.0-11.0); Neutrophils Percent Auto 75.3 % (42.0-72.0); Platelet Count* 210 K/uL (140-440); RDW Coefficient of Variation % 14.1 % (11.5-15.5); Red Blood Count 5.11 m/uL (4.00-5.20); White Blood Count* 9.32 K/uL (4.50-11.00)
[2025-03-25 15:16] LABS: Slide Review Reflex No
[2025-03-25 15:30] LABS: Chloride* 108 mmol/L (96-114); Sodium* 139 mmol/L (135-149)
[2025-03-25 15:31] LABS: Potassium* 4.3 mmol/L (3.6-5.1)
[2025-03-25 15:33] LABS: Blood Urea Nitrogen* 24 mg/dL (7-30); Creatinine* 0.8 mg/dL (0.5-1.5); Est. Creatinine Clearance* 47.67; Estimated Glomerular Filt Rate 75 ml/min
[2025-03-25 15:34] LABS: Anion Gap 9 mEq/L (7-15); Calcium* 9.4 mg/dL (8.4-10.6); Carbon Dioxide* 22 mmol/L (20-32); Glucose* 158 mg/dL (60-115)
--- NOTE | 2025-03-25 16:10 | PC.SOCIAL ---
Addendum entered by APPLE Tinajero 03/25/25 16:18: Discharge planning: Nurse to nurse report will need to be done at least thirty minutes prior to the pt's discharge at phone number #[phone]. Discharge orders, summary and three day MAR will need to be faxed prior to pt's discharge to fax number #[phone]. tangled yarn worker also printed off information that was emailed to this worker for the pt from the Regulatory Analyst at [facility] and gave them to the pt for her to review. Social work to follow-up as needed. Original Note: Discharge planning: Pt has been accepted to [facility] at the [facility] in [place] for tomorrow 03/26. tangled yarn worker notified the provider and charge nurse on duty. Pt will need to arrive by non-emergent EMS no later than noon on Tuesday. Non-emergent EMS transportation is scheduled for 940-1025 pick-up time. Social work to follow-up as needed.
[2025-03-25] MEDS: ENOXAPARIN 40 MG/0.4 ML INJ SUBCUT (21:02)
[2025-03-25] MEDS: AMITRIPTYLINE 25 MG TABLET PO (21:03)
[2025-03-25] MEDS: ALPRAZolam 0.25 MG TABLET PO (21:03)
[2025-03-26 04:05] VITALS: BP 148/72; PULSE 67; RESP 18; TEMP 36.7; O2SAT 90
[2025-03-26] MEDS: BACLOFEN 10 MG TABLET 5 MG PO (04:14)
--- NOTE | 2025-03-26 06:06 | PC.NURSE ---
[id number]: Patient pleasant and cooperative. Denies pain. R. arm flaccid and R. leg w/extreme weakness. Frequent T&R. Patient request PureWick during noc. R. sided facial asymmetrical. Denies CP/N/V.
[2025-03-26 07:50] VITALS: PULSE 71
[2025-03-26 08:10] VITALS: BP 150/83; PULSE 77; RESP 18; TEMP 36.4; O2SAT 94
[2025-03-26] MEDS: ASPIRIN 81 MG TAB.CHEW PO (08:16)
[2025-03-26] MEDS: oxyBUTYnin chloride 5 MG TAB.ER.24 15 MG PO (08:16)
[2025-03-26] MEDS: ROSUVASTATIN CALCIUM 10 MG TABLET 20 MG PO (08:16)
[2025-03-26] MEDS: CLOPIDOGREL 75 MG TABLET PO (08:16)
[2025-03-26] MEDS: LEVOTHYROXINE 125 MCG TABLET PO (08:17)
--- NOTE | 2025-03-26 10:57 | PC.NURSE ---
Pt. transferred to [facility] at 1054 via [facility]. [id number] report given to Nurse Rafy at [facility].
--- NOTE | 2025-03-26 14:56 | PC.SOCIAL ---
Discharge planning: Pt discharged to [facility] this morning via non-emergent EMS transport as a transfer to transfer between hospitals. Discharge orders and other requested documents were faxed to [facility] before the pt discharged at fax number #[phone]. Nurse to nurse report was also completed before the pt discharged at phone number #[phone]. Social work to follow-up as needed.
--- NOTE | 2025-03-27 09:23 | P.DS_ITS ---
DS: Providers Provider Date Seen: 03/26/25 Date of admission: 03/21/25 14:11 Primary care physician: Brigid Ibrahim MD Admitting Clinician: Maren Peraza MD Attending Physician on discharge: Grzegorz Mccloud MD Date of Discharge: 03/26/25 DS: Diagnosis Discharge Diagnosis (1) Acute lacunar infarction: Status: Acute Problem details: Clinical manifestation with right hemiparesis. -Brain MRI: 17 millimeter acute infarction within the left posterior putamen/periventricular coronary radiata, likely lacunar in etiology. -Pt is outside the window for thrombolytics and is not a candidate for [facility] thrombectomy as she doesnt have an LVO. -Permissive HTN, treat if only SBP > 220, and or DBP > 110. -Control Bl. sugar, keep < 180 -If neurological status detoriorates, order a stat CTH w/out IV cont. -Neurologist rec DAPT Tx for 21 days. -PT/OT/ST -Speech eval: relatively normal -DVT prophylaxis with enoxaparin -ECHO is normal except for PFO with positive bubble study. No cardiac source of embolism. -outpatient Zio patch teletypesetter monitor recommended. Normal sinus rhythm during hospital stay. -Outpatient Stroke Neurology and Cardiology follow-up recommended (2) Essential hypertension: Status: Acute Problem details: Permissive hypertension. Restart lisinopril after discharge. Target long-term blood pressure under 130/80 (3) Hyperlipidemia: Status: Acute Problem details: LDL cholesterol is 141. High-dose rosuvastatin to get LDL less than 70. (4) Interstitial cystitis: Status: Acute Problem details: On oxybutynin and amitriptyline. Check bladder scan for new neurologic problems with bladder. (5) Discharge planning issues: Status: Acute Problem details: Patient lives with her at [facility] the [facility]. He is disabled by Lewy body dementia. We are recommending acute rehab after this hospital stay. DS: Summary Hospital Course Hospital Course: Angela Valencia is a right-handed 79 year old female w/ PMHx of HTN, hypothyroidism, glaucoma, and interstitial cystitis presented to ED w/ Rt sided weakness. Pt LSN was ~ 10 PM yesterday. At the ED, CTH, CTA neck and brain MRI were done. Her MRI confirmed the presence of an acute Lt Lacunar infarct in the Putamen. Contacted Tele stroke team, who assessed her and stated that she is outside the window for thrombolytics and is not a candidate for [facility] thrombectomy as she doesnt have an LVO. Neurologist rec a DAPT Tx for 21 days, but didnt load her w/ ASA or plavix, just started w/ ASA 81 mg dose and Plavix 75 mg. Pt denies any Hx of strokes, TIAs or heart diseases except for HTN and Hx of ectopic beats. Not on any blood thinners. 03/22/2025: Patient reports that she feels a little weaker on the right side. She thought yesterday she can slightly move her right arm and leg but not at all today. She is having no troubles with swallowing. No sensory deficits. No pain. No other neurologic symptoms. She is found to have hyperlipidemia with an LDL cholesterol of 141 and a hemoglobin A1c of 5.9. She has been in normal sinus rhythm. Echocardiogram is pending. Stroke Neurology recommendations reviewed. During her hospital stay she had some improvement in her right facial droop and some improvement in her right lower extremity proximal muscle function. Distal right lower extremity and right upper extremity had no significant voluntary movement. Status at Discharge Functional status at discharge: wheelchair bound Overall status at discharge: other Time Spent with Patient Time attestation: Total time spent providing and/or coordinating discharge services: Time spent: Greater than 30 minutes Exam Narrative: Exam Narrative: She is alert pleasant and in no distress. She is observed to participate in therapy today. With an knee immobilizer she is able to stand holding a walker with her left hand. No movement in her right upper extremity. DS: Data Imaging MR Brain: Radiologist's impression: INDICATION: Right-sided weakness. Incoordination. TECHNIQUE: Brain MRI without contrast. COMPARISON: Head CT from 03/21/2025. FINDINGS: Focus of diffusion restriction/minimal FLAIR hyperintensity within the posterior putamen/periventricular ferrell radiata which measures 10 x 17 millimeters in axial plane. No evidence of acute or chronic intracranial blood products. Patchy FLAIR hyperintensities within the supratentorial white matter and brainstem, typical for chronic microvascular ischemic change. No mass effect or herniation. No hydrocephalus or extra-axial collections. The pituitary gland, parasellar structures and optic chiasm are normal. Posterior fossa is normal. All the major intracranial vascular structures demonstrate normal flow-related signal. The orbital contents are normal. No calvarial or skull base marrow replacing process. No obstructive sinus disease. No extracranial soft tissue findings. IMPRESSION: 1. 17 millimeter acute infarction within the left posterior putamen/periventricular coronary radiata, likely lacunar in etiology. 2. Mild chronic microvascular ischemic changes. CT- Other: Radiologist's impression: CTA neck: CLINICAL HISTORY: Acute neurological deficit. TECHNIQUE: Standard helical CT image acquisition through the neck was performed after intravenous contrast bolus enhancement. 3D and MIP reconstructions were performed at a separate workstation and permanently archived. COMPARISON: None available. FINDINGS: The origins of the great vessels from the aortic arch are patent. The common carotid arteries are patent. No significant luminal stenoses of the proximal ICAs by NASCET criteria. The more distal cervical segments of the ICAs are patent. The origins and cervical segments of the vertebral arteries are patent. IMPRESSION: Patent cervical arterial vasculature without hemodynamically significant luminal stenosis. CTA head: CLINICAL HISTORY: Acute neurological deficit. TECHNIQUE: Standard helical CT image acquisition through the neck was performed after intravenous contrast bolus enhancement. 3D and MIP reconstructions were performed at a separate workstation and permanently archived. COMPARISON: None available. FINDINGS: The origins of the great vessels from the aortic arch are patent. The common carotid arteries are patent. No significant luminal stenoses of the proximal ICAs by NASCET criteria. The more distal cervical segments of the ICAs are patent. The origins and cervical segments of the vertebral arteries are patent. IMPRESSION: Patent cervical arterial vasculature without hemodynamically significant luminal stenosis. Discharge Plan Discharge Disposition: [facility] Date of Admission: 03/21/25 14:11 Attending Provider on Discharge: Misbah Mccloud Primary Care Provider: Brigid Ibrahim Discharge Medications: New clopidogrel 75 mg tablet 75 mg PO DAILY Qty: 15 0RF rosuvastatin 40 mg tablet 40 mg PO DAILY Qty: 30 0RF aspirin 81 mg tablet 81 mg PO DAILY Qty: 30 0RF baclofen 5 mg tablet 5 mg PO TID Qty: 90 2RF Continued oxybutynin chloride 15 mg tablet extended release 24hr 15 mg PO DAILY alprazolam 0.5 mg tablet 0.25 - 0.5 mg PO DAILY PRN (Reason: anxiety) amitriptyline 25 mg tablet 25 mg PO HS levothyroxine 125 mcg tablet 125 mcg PO DAILY lisinopril 10 mg tablet 10 mg PO DAILY Discontinued Advil PM 200-38 mg tablet 1 cap PO HS PRN Discharge Orders: Discharge Order (Routine); Ordered 03/26/25 Ordered By: Misbah Mccloud Additional Instructions: Outpatient recommendations for follow-up of stroke: Obtain Zio patch teletypesetter monitor Stroke Neurology follow-up Cardiology followup for PFO Discharge Diet: Heart Healthy (2 gm sodium, low fat) Follow Up Appointments: Brigid Ibrahim MD [Primary Care Provider, Internal Medicine] Forms: [facility] Info Instructions Admit to: SNF Discharge Potential: Fair Can use facility standing orders?: Yes Code Status: Full Code Rehab Potential: Fair Therapy: Physical Therapy and Occupational Therapy Therapy Orders: Evaluate and Treat
--- NOTE | 2025-03-27 09:50 | PC.SOCIAL ---
Discharge planning: SW received discharge summary from provider and faxed this to Bassem Calzada at [facility].
== END 2025-03-26 10:54 | DRG 45 ==
LOC: ED 12:08 → MEDSURG 12:10
PROVIDERS: Family Medicine; Admitting Provider Student in an Organized Health Care Education/Training Program; Emergency Provider Family Medicine; PCP Internal Medicine; Visit Provider Student in an Organized Health Care Education/Training Program
DX: I63.81 Other cerebral infarction due to occlusion or stenosis of small artery (principal); G81.91 Hemiplegia, unspecified affecting right dominant side; R29.810 Facial weakness; I10 Essential (primary) hypertension; I44.7 Left bundle-branch block, unspecified; Z79.82 Long term (current) use of aspirin; N30.00 Acute cystitis without hematuria; N39.41 Urge incontinence; F41.9 Anxiety disorder, unspecified; E89.0 Postprocedural hypothyroidism; H40.9 Unspecified glaucoma; Z85.850 Personal history of malignant neoplasm of thyroid; Z85.828 Personal history of other malignant neoplasm of skin; Z87.891 Personal history of nicotine dependence; E78.5 Hyperlipidemia, unspecified
CPT/HCPCS: 36415; 70450; 70496; 70498; 70551; 80048; 80053; 80061; 83036; 83735; 85025; 85027; 85610; 85730; 92507; 92526; 92610; 93005; 93246; 93306; 94761; 96374; 97110; 97112; 97162; 97165; 97530; 97535; 99285; 99291; A4565; A9270; J1200; J1650; J1720; Q9967

== ENCOUNTER 2025-03-26 10:45 | Outpatient (CLI) | payer BC, SELFPAY | END 2025-03-26 10:46 | disposition home or self-care (01) | LOC: AMB 03-27 13:58 | PROVIDERS: PCP Internal Medicine; Visit Provider Emergency Medicine | DX: R56.9 Unspecified convulsions (principal); G83.89 Other specified paralytic syndromes | CPT/HCPCS: A0425; A0428 ==

== ENCOUNTER 2025-07-11 15:02 | Outpatient (CLI) | payer BC, SELFPAY | END 2025-07-11 15:03 | disposition home or self-care (01) | LOC: NFLDREF 15:03 | PROVIDERS: PCP Internal Medicine; Visit Provider Internal Medicine | DX: I63.9 Cerebral infarction, unspecified (principal) | CPT/HCPCS: 80061 ==